=== PATIENT | female | born 1945 | race Caucasian/White ===

== ENCOUNTER → 2023-06-19 | Outpatient (CLI) | payer MEDICARE, BC ==
[~2023-06-19] MED LIST: ATOR10 PO; LEVSOD75 PO; METO25 PO; NITR.4SL PO
[2023-06-19 12:41] LABS: Source, Urine Clean Catch
[2023-06-19 15:33] LABS: Appearance, Urine Clear (Clear); Bilirubin, Urine Neg (Neg); Blood, Urine 2+ (Neg); Glucose Qualitative, Urine Neg (Neg); Ketones, Urine Neg (Neg); Leukocyte Esterase, Urine Neg (Neg); Nitrite, Urine Neg (Neg); Protein, Urine Neg (Neg); Urobilinogen, Urine NORM (Normal)
[2023-06-19 15:44] LABS: Color, Urine Pale Yellow (P-Yellow)
[2023-06-19 15:45] LABS: Squamous Epithelial Cells Few /hpf (Few); White Blood Cells, Urine 0-2 /hpf (0-5)
[2023-06-19 15:46] LABS: Bacteria Rare /hpf
== END | disposition home or self-care (01) ==
LOC: LAB SHORT 12:39 → LAB 12:39 → EDSTATUS 06-13 08:40 → LAB FUT 06-13 08:40
PROVIDERS: Internal Medicine
DX: N39.0 Urinary tract infection, site not specified (principal)
CPT/HCPCS: 81001

== ENCOUNTER 2024-09-25 08:33 | Emergency (ER) | payer MEDICARE, BC ==
[~2024-09-25] VITALS: Ht 167.6 cm; Wt 68.0 kg
[2024-09-25 13:04] VITALS: BP 162/89
== END 2024-09-25 15:00 | disposition home or self-care (01) ==
LOC: ER 08:33
DX: Z04.3 Encounter for examination and observation following other accident (principal); E03.9 Hypothyroidism, unspecified; I49.9 Cardiac arrhythmia, unspecified; E78.5 Hyperlipidemia, unspecified; Z79.899 Other long term (current) drug therapy; W17.89XA Other fall from one level to another, initial encounter; Y93.A1 Activity, exercise machines primarily for cardiorespiratory conditioning; Y92.29 Other specified public building as the place of occurrence of the external cause
CPT/HCPCS: 70450; 99283-25

== ENCOUNTER → 2025-05-22 | Outpatient (CLI) | payer MEDICARE, BC ==
[2025-05-22 14:50] LABS: Source, Urine Clean Catch
[2025-05-22 15:03] LABS: Red Blood Cells, Urine 0-2 /hpf (0-2); White Blood Cells, Urine 0-2 /hpf (0-5)
== END ==
LOC: LAB 14:48 → LAB SHORT 14:48
PROVIDERS: Family Medicine
DX: R35.0 Frequency of micturition (principal)
CPT/HCPCS: 81015